=== PATIENT | female | born 1975 ===

== ENCOUNTER 2017-12-14 18:21 | Emergency (ER) | payer OTHER ==
[2017-12-14 18:21] VITALS: BMI 24.0
[2017-12-14 18:30] VITALS: BP 137/71; PULSE 71; RESP 18; TEMP 98.7; O2SAT 99
--- NOTE | 2017-12-14 18:58 | ED PDOC ---
Upper Extremity Pain/Injury Time Seen by Provider: 12/14/17 18:42 Chief Complaint (Nursing): Weakness/Neurological Deficit Chief Complaint (Provider): left arm numbness History Per: Patient Additional Complaint(s): 42 yo female, denies any PMH, presents to ED with c/o left sided neck pain and left arm numbness x 1 day. Denies trauma or injury. Pt admits to heavy lifting for work. no chest pain or SOB Past Medical History Reviewed: Nursing Documentation, Vital Signs Vital Signs: Last Vital Signs Temp 98.7 F 12/14/17 18:26 Pulse 71 12/14/17 18:26 Resp 18 12/14/17 18:26 BP 137/71 12/14/17 18:26 Pulse Ox 99 12/14/17 18:26 - Medical History PMH: No Chronic Diseases - Surgical History Surgical History: No Surg Hx - Family History Family History: States: Unknown Family Hx - Living Arrangements Living Arrangements: With Family - Social History Alcohol: Social Drugs: Denies - Immunization History Hx Tetanus Toxoid Vaccination: No Hx Influenza Vaccination: No Hx Pneumococcal Vaccination: No - Home Medications Home Medications: Ambulatory Orders Medication Instructions Recorded Acetaminophen [Tylenol Extra 2 tab PO Q8H PRN #30 tablet 05/28/16 Strength] Prednisone 1 tab PO DAILY #3 tablet 05/28/16 - Allergies Allergies/Adverse Reactions: Allergies Allergy/AdvReac Type Severity Reaction Status Date / Time No Known Allergies Allergy Unverified 05/28/16 19:45 Review of Systems ROS Statement: Except As Marked, All Systems Reviewed And Found Negative Musculoskeletal: Positive for: Shoulder Pain Physical Exam - Reviewed Nursing Documentation Reviewed: Yes Vital Signs Reviewed: Yes - Physical Exam Appears: Positive for: Well, Non-toxic, No Acute Distress Head Exam: Positive for: ATRAUMATIC, NORMAL INSPECTION, NORMOCEPHALIC Skin: Positive for: Normal Color, Warm, DRY Eye Exam: Positive for: EOMI, Normal appearance, PERRL ENT: Positive for: Normal ENT Inspection Neck: Positive for: Normal, Painless ROM Cardiovascular/Chest: Positive for: Regular Rate, Rhythm Respiratory: Positive for: CNT, Normal Breath Sounds Gastrointestinal/Abdominal: Positive for: Normal Exam, Bowel Sounds, Soft Back: Positive for: Normal Inspection Extremity: Positive for: Other ((+) pain on abduction). Negative for: Tenderness, Deformity Neurologic/Psych: Positive for: Alert, Oriented - ECG O2 Sat by Pulse Oximetry: 99 Medical Decision Making Medical Decision Making: Pt medicated with Toradol and Percocet PO C-Spine and Shoulder XR pending. Case endorsed to IRA Castellanos at 1999 pending diagnostic review and re-eval Disposition - Clinical Impression Clinical Impression: Cervical radiculopathy - Patient ED Disposition Is Patient to be Admitted: Transfer of Care - Disposition Disposition: Transfer of Care Disposition Time: 19:54 Condition: STABLE Forms: [employer] (Hungarian)
[2017-12-14] MEDS ORDERED: Oxycodone/Acetaminophen 5/325 mg Tab PO STA (19:52)
[2017-12-14] MEDS ORDERED: Oxycodone/Acetaminophen 5/325 mg Tab ONE (20:03)
--- NOTE | 2017-12-14 21:19 | ED PDOC ---
- ECG O2 Sat by Pulse Oximetry: 99 - Other Rad xray cspine X-Ray: Viewed By Me X-Ray Interpretation: no acute findings xray left shoulder X-Ray: Viewed By Me X-Ray Interpretation: no acute findings - Progress ED Course And Treament: Case endorsed to contract writer from [facility] pending imaging Patient educated on findings, discharged with rx Naproxen, Flexeril. Advised follow up PMD/ortho Return precautions given. Disposition - Clinical Impression Clinical Impression: Cervical radiculopathy - POA Present On Arrival: None - Disposition Disposition: Routine/Home Disposition Time: 21:21 Condition: IMPROVED Prescriptions: Cyclobenzaprine [Cyclobenzaprine HCl] 10 mg PO BID PRN #14 tab PRN Reason: Muscle Spasm Naproxen [Naprosyn] 500 mg PO Q12 PRN #20 tablet PRN Reason: Pain, Moderate (4-7) Instructions: Cervical Radiculopathy (ED) Forms: [employer] (Turkmen), [facility] ED School/Work Excuse Print Language: INDONESIAN
--- NOTE | 2017-12-15 12:55 | RAD ---
PROCEDURE: Cervical Spine Radiographs. HISTORY: Pain. COMPARISON: None. FINDINGS: BONES: Alignment maintained. No fracture. Dens Intact. DISC SPACES: Normal. SOFT TISSUES: Normal. No prevertebral soft tissue swelling. OTHER FINDINGS: None. IMPRESSION: Normal cervical spine radiographs
--- NOTE | 2017-12-15 13:24 | RAD ---
PROCEDURE: Radiographs of the Left Shoulder HISTORY: pain COMPARISON: No prior. FINDINGS: BONES: Normal. No fracture. JOINTS: Normal. Glenohumeral and acromioclavicular joints preserved. No osteoarthritis. SOFT TISSUES: Normal. OTHER FINDINGS: None. IMPRESSION: Normal radiographs of the left shoulder.
== END 2017-12-14 21:28 | disposition home or self-care (01) ==
LOC: H.ER 18:21
DX: M54.12 Radiculopathy, cervical region (principal)
CPT/HCPCS: 72040; 73030; 96372; 99284; J1885